=== PATIENT | female | born 1940 | race Caucasian/White ===

== ENCOUNTER 2017-11-05 15:31 | Emergency (ER) | payer MEDICARE, MEDICAID ==
--- NOTE | 2017-11-05 17:27 | XRAY Report ---
Procedure Date: 11/05/2017 Accession Number: [id number] / [id number] Procedure: XR - Tib/Fib LT CPT Code: FULL RESULT: EXAM: LEFT TIBIA/FIBULA RADIOGRAPHY EXAM DATE: 11/05/2017 05:08 PM. CLINICAL HISTORY: L leg pain, swelling. COMPARISON: None. TECHNIQUE: 2 views. FINDINGS: Bones: There is moderate spurring and degenerative disease of the knee. No acute fracture or destructive bony abnormality. Joints: There is mild joint space narrowing in the medial compartment of the knee. No subluxation or dislocation. Soft Tissues: There is soft tissue swelling at the ankle. IMPRESSION: 1. Degenerative disease of the knee and ankle without acute fracture. RADIA
--- NOTE | 2017-11-05 17:29 | ED Physician Documentation ---
History of Present Illness - Stated complaint Stated Complaint: LT LEG LUMP/PX - Chief complaint Chief Complaint: Ext Problem - History obtained from History obtained from: Patient, Family - History of Present Illness Timing: How many days ago (2) Pain level max: 8 Pain level now: 8 Improved by: rest Worsened by: walking - Additonal information Additional information: LLE pain, swelling to mid roberts. mild bruising. doesn't recall an injury. no redness. Review of Systems Constitutional: denies: Fever, Chills GI: denies: Nausea, Vomiting, Diarrhea Skin: denies: Rash Musculoskeletal: denies: Neck pain, Back pain PD PAST MEDICAL HISTORY - Past Medical History Past Medical History: Yes Cardiovascular: None Respiratory: Sleep apnea, CPAP use Endocrine/Autoimmune: None GI: Other : Other HEENT: None Derm: None Other Past Medical History: Nephrectomy. Peritonitis (septic after appendix removal) - Past Surgical History General: Other - Present Medications Home Medications: Ambulatory Orders Medication Instructions Recorded Confirmed Hydrochlorothiazide 12.5 mg PO 11/05/17 Ramipril 2.5 mg PO 11/05/17 - Allergies Allergies/Adverse Reactions: Allergies Allergy/AdvReac Type Severity Reaction Status Date / Time No Known Drug Allergies Allergy Verified 11/05/17 15:38 - Social History Does the pt smoke?: No Smoking Status: Never smoker Does the pt drink ETOH?: Yes Does the pt have substance abuse?: No - Immunizations Immunizations are current?: Yes - POLST Patient has POLST: No PD ED PE NORMAL - Vitals Vital signs reviewed: Yes - General General: Alert and oriented X 3, No acute distress - HEENT HEENT: Moist mucous membranes - Neck Neck: Supple, no meningeal sign - Derm Derm: Warm and dry - Extremities Extremities: Other (L LE - small hematoma to the anterior aspect of the L roberts 2x2cm with bruising. no crepitus. no erythema. no drainage. no palpable thrombosis. ) - Neuro Neuro: Alert and oriented X 3 Results - Vitals Vitals: Vital Signs - 24 hr 11/05/17 15:36 Temperature 36.8 C Heart Rate 78 Respiratory 16 Rate Blood Pressure 121/93 H O2 Saturation 97 - Rads (name of study) L tib fib xray Radiology: Prelim report reviewed, EMP read contemporaneously, See rad report ( Degenerative disease of the knee and ankle without acute fracture) PD MEDICAL DECISION MAKING - ED course Complexity details: reviewed results, re-evaluated patient, considered differential, d/w patient, d/w family ED course: Patient is a 77-year-old female with what appears to be a small hematoma to the left roberts. Does not recall an injury. Bedside ultrasound shows a small hypoechoic area without vascular flow. No acute findings on x-ray to suggest acute fracture. Wrapped in an Rodolfo wrap. Ambulating with walking sticks. Patient and family counseled regarding signs and symptoms for which I believe and urgent re-evaluation would be necessary. Patient with good understanding of and agreement to plan and is comfortable going home at this time This document was made in part using voice recognition software. While efforts are made to proofread this document, sound alike and grammatical errors may occur. - Sepsis Event Vital Signs: Vital Signs - 24 hr 11/05/17 15:36 Temperature 36.8 C Heart Rate 78 Respiratory 16 Rate Blood Pressure 121/93 H O2 Saturation 97 Departure - Departure Disposition: 01 Home, Self Care Clinical Impression: Hematoma Condition: Good Instructions: ED Hematoma Follow-Up: Israel Tamez MD [Primary Care Provider] - Within 1 week Comments: Return if you worsen. Wear the RODOLFO bandage for comfort during the day and remove it at night. Ice may help as well
[2017-11-05 17:49] VITALS: BP 143/77
== END 2017-11-05 17:48 | disposition home or self-care (01) ==
LOC: ED 15:31
DX: S80.12XA Contusion of left lower leg, initial encounter (principal); X58.XXXA Exposure to other specified factors, initial encounter
CPT/HCPCS: 99283

== ENCOUNTER 2017-12-09 22:34 | Outpatient (CLI) | payer MEDICARE, MEDICAID | END 2017-12-09 22:35 | disposition critical access hospital (66) | LOC: EMS 22:34 | PROVIDERS: ATTEND Surgery | DX: R07.9 Chest pain, unspecified (principal); S41.111A Laceration without foreign body of right upper arm, initial encounter; V40.5XXA Car driver injured in collision with pedestrian or animal in traffic accident, initial encounter; Y92.413 State road as the place of occurrence of the external cause | CPT/HCPCS: A0425; A0429 ==

== ENCOUNTER 2017-12-09 22:46 | Emergency (ER) | payer OTHER, MEDICARE, MEDICAID ==
[2017-12-09] MEDS ORDERED: TETANUS/DIPHTHERIA/PERTUSSIS 0.5 ML SYRINGE IM ONE (23:05)
[2017-12-09] MEDS ORDERED: HYDROcod/ACETAM 5/325 MG TABLET PO STA (23:05)
[2017-12-09] MEDS ORDERED: BACITRACIN OINT TOP ONE (23:51)
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
[2017-12-10 00:28] VITALS: BP 136/75
== END 2017-12-10 00:10 | disposition home or self-care (01) ==
LOC: EDUNIT# → ED 22:46
DX: S39.012A Strain of muscle, fascia and tendon of lower back, initial encounter (principal); S20.219A Contusion of unspecified front wall of thorax, initial encounter; S51.811A Laceration without foreign body of right forearm, initial encounter; V40.5XXA Car driver injured in collision with pedestrian or animal in traffic accident, initial encounter; Z23 Encounter for immunization
CPT/HCPCS: 71046; 72100; 90471; 90715; 93005; 99283; A9270

== ENCOUNTER 2018-03-20 11:38 | Outpatient (CLI) | payer MEDICARE, MEDICAID | END 2018-03-20 11:39 | disposition home or self-care (01) | LOC: SC 11:38 | PROVIDERS: ATTEND Internal Medicine Pulmonary Disease | DX: G47.33 Obstructive sleep apnea (adult) (pediatric) (principal) | CPT/HCPCS: 99203; G0463; 99212 ==

== ENCOUNTER 2018-03-27 19:39 | Outpatient (CLI) | payer MEDICARE, MEDICAID | END 2018-03-27 19:40 | disposition home or self-care (01) | LOC: SC 19:39 | PROVIDERS: ATTEND Internal Medicine Pulmonary Disease | DX: G47.33 Obstructive sleep apnea (adult) (pediatric) (principal); G47.61 Periodic limb movement disorder | CPT/HCPCS: 95810 ==

== ENCOUNTER 2018-05-16 14:47 | Outpatient (CLI) | payer MEDICARE, MEDICAID | END 2018-05-16 14:48 | disposition home or self-care (01) | LOC: SC 14:47 | PROVIDERS: ATTEND Nurse Practitioner Family | DX: G47.33 Obstructive sleep apnea (adult) (pediatric) (principal) | CPT/HCPCS: 99214; G0463; 99212 ==

== ENCOUNTER 2018-06-20 13:50 | Outpatient (CLI) | payer MEDICARE, MEDICAID | END 2018-06-20 13:51 | disposition home or self-care (01) | LOC: SC 13:50 | PROVIDERS: ATTEND Nurse Practitioner Family | DX: G47.33 Obstructive sleep apnea (adult) (pediatric) (principal) | CPT/HCPCS: 99214; G0463; 99212 ==

== ENCOUNTER 2018-08-07 10:18 | Outpatient (CLI) | payer MEDICARE, MEDICAID | END 2018-08-07 10:19 | disposition home or self-care (01) | LOC: SC 10:18 | PROVIDERS: ATTEND Nurse Practitioner Family | DX: G47.33 Obstructive sleep apnea (adult) (pediatric) (principal) | CPT/HCPCS: 99214; G0463; 99212 ==

== ENCOUNTER 2018-11-20 13:26 | Outpatient (CLI) | payer MEDICARE, MEDICAID | END 2018-11-20 13:27 | disposition home or self-care (01) | LOC: SC 13:26 | PROVIDERS: ATTEND Nurse Practitioner Family | DX: G47.33 Obstructive sleep apnea (adult) (pediatric) (principal); G47.00 Insomnia, unspecified | CPT/HCPCS: 99214; G0463; 99212 ==

== ENCOUNTER 2019-05-13 13:01 | Outpatient (CLI) | payer MEDICARE, MEDICAID ==
--- NOTE | 2019-05-14 04:56 | XRAY Report ---
Reason: BILAT KNEE PAIN Procedure Date: 05/13/2019 Accession Number: [id number] / [id number] Procedure: XRN - Knee 3 View BILAT CPT Code: Final Report FULL RESULT: EXAMS: 1. Right Knee Radiography 2. Left Knee Radiography EXAM DATE:05/13/2019 01:29 PM. CLINICAL HISTORY:BILAT KNEE PAIN. COMPARISON: None. TECHNIQUE: 3 views each. FINDINGS: Right Knee: Bones: No acute fracture evident. Osteophyte formation at distal femur and proximal tibia. Joints: Mild medial lateral compartment joint space narrowing and patellofemoral joint space narrowing. Suprapatellar joint effusion. Soft Tissues: Suspected chondrocalcinosis. Prominent soft tissues related to body habitus. Left Knee: Bones: No acute fracture evident. Osteophyte formation at distal femur and proximal tibia. Joints: Tricompartmental joint space narrowing, most prominent at medial compartment and patellofemoral compartment. Prominent suprapatellar joint effusion. Soft Tissues: Suspected chondrocalcinosis. Prominent soft tissues related to body habitus. IMPRESSION: 1. No evidence of acute osseous abnormality. 2. Bilateral knee osteoarthritis. 3. Bilateral joint effusions, larger on left than right. RADIA
== END 2019-05-13 13:02 | disposition home or self-care (01) ==
LOC: DI.N 13:01
PROVIDERS: ATTEND Internal Medicine
DX: M17.0 Bilateral primary osteoarthritis of knee (principal)

== ENCOUNTER 2019-11-09 13:03 | Emergency (ER) | payer MEDICARE, MEDICAID ==
--- NOTE | 2019-11-09 14:32 | XRAY Report ---
PROCEDURE: Chest 1 View X-Ray INDICATIONS: Chest Pain TECHNIQUE: One view of the chest was acquired. COMPARISON: Chest x-ray one view, 12/09/2017 FINDINGS: Surgical changes and devices: None. Lungs and pleura: No pleural effusions or pneumothorax. There is left basilar scars and atelectasis. Mediastinum: Mediastinal contours appear normal. Heart size is normal. Bones and chest wall: No suspicious bony lesions. Overlying soft tissues appear unremarkable. IMPRESSION: Left basilar scars and atelectasis. Reviewed by: Drew Valdes MD on 11/09/2019 2:31 PM PDT Approved by: Drew Valdes MD on 11/09/2019 2:31 PM PDT Station ID: [id number]
[2019-11-09 15:09] LABS: BASOPHILS % (AUTO) 0.1 %; HGB - HEMOGLOBIN 11.6 g/dL (12.0-16.0); LYMPHOCYTES # (AUTO) 0.9 10^3/uL (1.5-3.5); LYMPHOCYTES % (AUTO) 11.8 %; MEAN CORPUSCULAR HEMOGLOBIN 28.5 pg (27.0-31.0); MEAN CORPUSCULAR HGB CONC 31.6 g/dL (32.0-36.0); MEAN CORPUSCULAR VOLUME 90.2 fL (81.0-99.0); MEAN PLATELET VOLUME 8.6 fL (7.9-10.8); MONOCYTES # (AUTO) 0.3 10^3/uL (0.0-1.0); MONOCYTES % (AUTO) 4.3 %; NEUTROPHILS # (AUTO) 6.6 10^3/uL (1.5-6.6); NEUTROPHILS % (AUTO) 83.4 %; PLT - PLATELET COUNT 209 10^3/uL (130-450); RED BLOOD COUNT 4.07 10^6/uL (4.20-5.40); RED CELL DISTRIBUTION WIDTH 13.6 % (12.0-15.0)
--- NOTE | 2019-11-09 15:25 | ED Physician Documentation ---
PD HPI CHEST PAIN - Stated complaint Stated Complaint: CHEST PX/N/V - Chief complaint Chief Complaint: Cardiac - History obtained from History obtained from: Patient - History of Present Illness Timing - onset: Today Pain level max: 7 Pain level now: 3 Quality: Aching, Pain Location: Epigastric, Other (Right upper quadrant) Radiation: Back Improved by: Nothing Worsened by: Other (Eating, drinking, vomiting) Associated symptoms: Nausea, Vomiting. No: Diaphoresis, Feeling faint / dizzy, General Weakness, Palpitations Recently seen: Not recently seen - Additional information Additional information: 79-year-old female presents to the emergency department stating that she had nausea and vomiting this morning starting about 2 AM. Nothing makes it better or worse. Has epigastric abdominal pain that radiates to her back as well. Did not have any chest pain. No dyspnea. She did travel from the [place] approximately 3 weeks ago. No calf swelling. No pleuritic pain. Does have a history of gallstones. Has had her appendix removed. No fevers. No recent antibiotics. Review of Systems Ten Systems: 10 systems reviewed and negative Constitutional: denies: Fever, Chills Nose: denies: Rhinorrhea / runny nose, Congestion Throat: denies: Sore throat Cardiac: denies: Chest pain / pressure Respiratory: denies: Cough GI: reports: Nausea, Vomiting. denies: Diarrhea : denies: Dysuria Skin: denies: Rash Musculoskeletal: denies: Neck pain, Back pain Neurologic: denies: Headache PD PAST MEDICAL HISTORY - Past Medical History Cardiovascular: None Respiratory: Sleep apnea, CPAP use Endocrine/Autoimmune: None GI: Other : Other HEENT: None Derm: None - Past Surgical History General: Other - Present Medications Home Medications: Ambulatory Orders Medication Instructions Recorded Confirmed Hydrochlorothiazide 12.5 mg PO DAILY 11/05/17 12/09/17 Ramipril 2.5 mg PO DAILY 11/05/17 12/09/17 Ondansetron Odt [Zofran] 4 mg TL Q6H PRN #10 tablet 11/09/19 - Allergies Allergies/Adverse Reactions: Allergies Allergy/AdvReac Type Severity Reaction Status Date / Time No Known Drug Allergies Allergy Verified 11/05/17 15:38 - Social History Does the pt smoke?: No Smoking Status: Never smoker Does the pt drink ETOH?: Yes Does the pt have substance abuse?: No - Immunizations Immunizations are current?: Yes - POLST Patient has POLST: No PD ED PE NORMAL - Vitals Vital signs reviewed: Yes - General General: Alert and oriented X 3, No acute distress, Well developed/nourished - HEENT HEENT: PERRL, Moist mucous membranes - Neck Neck: Supple, no meningeal sign - Cardiac Cardiac: RRR, Strong equal pulses - Respiratory Respiratory: No respiratory distress, Clear bilaterally - Abdomen Abdomen: Normal bowel sounds, Soft, Non distended, Other (Tender to palpation right upper quadrant and epigastric. Equivocal Pyle sign) - Back Back: No CVA TTP, No spinal TTP - Derm Derm: Warm and dry - Extremities Extremities: No calf tenderness / cord - Neuro Neuro: Alert and oriented X 3 - Psych Psych: Normal mood, Normal affect Results - Vitals Vitals: Vital Signs - 24 hr 11/09/19 11/09/19 11/09/19 13:15 15:10 15:51 Temperature 2.3 C L 37.0 C Heart Rate 93 88 85 Respiratory 16 16 15 Rate Blood Pressure 143/82 H 123/78 127/66 O2 Saturation 100 99 93 11/09/19 11/09/19 11/09/19 16:30 17:00 17:30 Temperature Heart Rate 81 80 81 Respiratory 18 11 L 18 Rate Blood Pressure 127/105 H 101/64 114/64 O2 Saturation 97 99 96 Oxygen O2 Source Room air - Labs Labs: Laboratory Tests 11/09/19 11/09/19 11/09/19 15:00 15:00 15:00 WBC 8.0 RBC 4.07 L Hgb 11.6 L Hct 36.7 L MCV 90.2 MCH 28.5 MCHC 31.6 L RDW 13.6 Plt Count 209 MPV 8.6 Neut # (Auto) 6.6 Lymph # (Auto) 0.9 L [place] # (Auto) 0.3 Eos # (Auto) 0.0 Baso # (Auto) 0.0 Absolute Nucleated RBC 0.00 Nucleated RBC % 0.0 Sodium 136 Potassium 3.5 Chloride 96 L Carbon Dioxide 28 Anion Gap 12.0 BUN 22 H Creatinine 0.9 Estimated GFR (MDRD) 60 L Glucose 129 H Calcium 9.0 Total Bilirubin 1.0 AST 22 ALT 22 Alkaline Phosphatase 60 Troponin I High Sens 8.5 Total Protein 6.6 L Albumin 3.6 Globulin 3.0 Albumin/Globulin Ratio 1.2 Lipase 26 - Rads (name of study) RUQ US Radiology: Prelim report reviewed, EMP read contemporaneously, See rad report (1. Cholelithiasis. No ultrasound findings to suggest acute cholecystitis. 2. Dilated common bile duct. Please correlate with serum bilirubin for biliary obstruction. If clinically indicated, MRCP may be obtained for further evaluation. 3. Liver demonstrates increased echotexture consistent with diff) PD MEDICAL DECISION MAKING - ED course Complexity details: reviewed results, re-evaluated patient, considered differential, d/w patient, d/w family ED course: Patient appears to have biliary colic. Currently asymptomatic. No findings of cholecystitis. Tolerating p.o. without difficulty. Will prescribe nausea med ication for home. Counseled regarding dietary changes. Appears to have fatty liver as well. No clinical indication of biliary obstruction. Normal LFTs and bilirubin. Patient is well-appearing, nontoxic. Afebrile. Patient counseled regarding signs and symptoms for which I believe and urgent re-evaluation would be necessary. Patient with good understanding of and agreement to plan and is comfortable going home at this time This document was made in part using voice recognition software. While efforts are made to proofread this document, sound alike and grammatical errors may occur. Departure - Departure Disposition: 01 Home, Self Care Clinical Impression: Gallstones Vomiting Qualifiers: Vomiting type: unspecified Vomiting Intractability: non-intractable Nausea presence: with nausea Qualified Code(s): R11.2 - Nausea with vomiting, unspecified Condition: Good Instructions: ED Gallstone W Biliary Colic, ED Nausea Vomiting Follow-Up: Israel Tamez MD [Primary Care Provider] - Within 1 week Prescriptions: Ondansetron Odt [Zofran] 4 mg TL Q6H PRN #10 tablet PRN Reason: Nausea / Vomiting Comments: Follow-up with your doctor for further care. Return if you worsen. you should follow a low-fat diet. Discharge Date/Time: 11/09/19 18:27
[2019-11-09 15:29] LABS: ALBUMIN 3.6 g/dL (3.2-5.5); ALBUMIN/GLOBULIN RATIO 1.2 (1.0-2.2); CREATININE 0.9 mg/dL (0.4-1.0); TOTAL PROTEIN 6.6 g/dL (6.7-8.2)
[2019-11-09] MEDS ORDERED: MORPHINE 2 MG/ML CARPUJECT IVP STA (15:38)
[2019-11-09] MEDS ORDERED: SODIUM CHLORIDE 0.9% 1,000 ML IV STA ×2 (15:38)
[2019-11-09] MEDS ORDERED: ONDANSETRON 4 MG/2 ML VIAL IVP STA (15:38)
[2019-11-09] MEDS ORDERED: SUCRALFATE 1 GM/10 ML UDC PO STA (15:41)
[2019-11-09] MEDS ORDERED: MAG HYDROX/AL HYDROX/SIMETH 30 ML UDC PO STA (15:41)
[2019-11-09] MEDS ORDERED: LIDOCAINE VISCOUS 2% 15 ML UDC MM STA (15:41)
--- NOTE | 2019-11-09 17:46 | Ultrasound Report ---
PROCEDURE: Abdomen Limited INDICATIONS: RUQ abd pain TECHNIQUE: Real-time focused scanning was performed of the abdomen, with image documentation. COMPARISON: None. FINDINGS: There are are multiple mobile gallstones. No gallbladder wall thickening, pericholecystic fluid colle ction or sonographic Pyle's sign. Visualized liver demonstrates increased echotexture. Common bile duct is dilated measuring 10 mm. Right kidney is absent. IMPRESSION: 1. Cholelithiasis. No ultrasound findings to suggest acute cholecystitis. 2. Dilated common bile duct. Please correlate with serum bilirubin for biliary obstruction. If clinic ally indicated, MRCP may be obtained for further evaluation. 3. Liver demonstrates increased echotexture consistent with diffuse fatty infiltration. Other hepatoc ellular disease may have a similar appearance. Recommend correlation with liver functions. Reviewed by: Drew Valdes MD on 11/09/2019 5:45 PM PDT Approved by: Drew Valdes MD on 11/09/2019 5:45 PM PDT Station ID: [id number]
[2019-11-09 17:53] VITALS: BP 114/64
== END 2019-11-09 18:27 | disposition home or self-care (01) ==
LOC: ED 13:03
DX: K80.20 Calculus of gallbladder without cholecystitis without obstruction (principal); R11.2 Nausea with vomiting, unspecified; Z11.59 Encounter for screening for other viral diseases
CPT/HCPCS: 36415; 71045; 76705; 80053; 83690; 84484; 85025; 93005; 96374; 96375; 99284; 99285; A9270; U0004

== ENCOUNTER 2020-04-21 13:08 | Outpatient (CLI) | payer MEDICARE, MEDICAID ==
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
== END 2020-04-21 13:09 | disposition home or self-care (01) ==
LOC: SC 13:08
PROVIDERS: ATTEND Internal Medicine Pulmonary Disease
DX: G47.33 Obstructive sleep apnea (adult) (pediatric) (principal); E66.01 Morbid (severe) obesity due to excess calories; Z68.41 Body mass index [BMI] 40.0-44.9, adult
CPT/HCPCS: 99213; G0463; 99212

== ENCOUNTER 2021-01-18 15:23 | Outpatient (CLI) | payer MEDICARE, MEDICAID ==
[2021-01-18 18:00] LABS: BASOPHILS % (AUTO) 0.4 %; EOSINOPHILS # (AUTO) 0.1 10^3/uL (0.0-0.7); EOSINOPHILS % (AUTO) 1.7 %; HCT - HEMATOCRIT 38.2 % (37.0-47.0); HGB - HEMOGLOBIN 12.2 g/dL (12.0-16.0); LYMPHOCYTES # (AUTO) 1.6 10^3/uL (1.5-3.5); LYMPHOCYTES % (AUTO) 29.9 %; MEAN CORPUSCULAR HEMOGLOBIN 28.7 pg (27.0-31.0); MEAN CORPUSCULAR HGB CONC 31.9 g/dL (32.0-36.0); MEAN CORPUSCULAR VOLUME 89.9 fL (81.0-99.0); MEAN PLATELET VOLUME 8.9 fL (7.9-10.8); MONOCYTES # (AUTO) 0.4 10^3/uL (0.0-1.0); NEUTROPHILS # (AUTO) 3.3 10^3/uL (1.5-6.6); NEUTROPHILS % (AUTO) 60.6 %; PLT - PLATELET COUNT 241 10^3/uL (130-450); RED BLOOD COUNT 4.25 10^6/uL (4.20-5.40); RED CELL DISTRIBUTION WIDTH 13.6 % (12.0-15.0); WHITE BLOOD COUNT 5.5 x10^3/uL (4.8-10.8)
[2021-01-18 18:38] LABS: ALBUMIN/GLOBULIN RATIO 1.4 (1.0-2.2); BILIRUBIN,TOTAL 0.5 mg/dL (0.2-1.0); CALCIUM 9.8 mg/dL (8.5-10.3); CREATININE 0.8 mg/dL (0.4-1.0); POTASSIUM 3.8 mmol/L (3.5-5.0); TOTAL PROTEIN 6.9 g/dL (6.7-8.2)
== END 2021-01-18 15:24 | disposition home or self-care (01) ==
LOC: LAB.N 15:23
PROVIDERS: ATTEND Internal Medicine
DX: Z79.899 Other long term (current) drug therapy (principal)
CPT/HCPCS: 36415; 80053; 85025

== ENCOUNTER 2021-01-18 15:31 | Outpatient (CLI) | payer MEDICARE, MEDICAID ==
--- NOTE | 2021-01-19 12:35 | XRAY Report ---
PROCEDURE: Knee 4 View BILAT INDICATIONS: BILATERAL PRIMARY OSTEOARTHRITIS OF KNEES TECHNIQUE: 4 views of the bilateral knee(s) were acquired. COMPARISON: None. FINDINGS: Bones: No fractures or dislocations. No suspicious bony lesions. There is severe bilateral medial compartment narrowing, left greater than right with subchondral sclerosis and periarticular osteophyt es. No definitive erosions. There is slight appearance of chondrocalcinosis bilaterally. Severe bilat eral patellofemoral as well as mild to moderate right greater than left lateral compartment narrowing is present. Soft tissues: Mild bilateral effusions. No suspicious soft tissue calcifications. IMPRESSION: 1. Significant tricompartmental arthritic change most severe medially as above. Reviewed by: Juana Carrillo MD on 01/19/2021 12:34 PM PDT Approved by: Juana Carrillo MD on 01/19/2021 12:34 PM PDT Station ID: [id number]
== END 2021-01-18 15:32 | disposition home or self-care (01) ==
LOC: DI.N 15:31
PROVIDERS: ATTEND Internal Medicine
DX: M17.0 Bilateral primary osteoarthritis of knee (principal); Z79.899 Other long term (current) drug therapy
CPT/HCPCS: 36415; 80053; 85025

== ENCOUNTER 2021-11-19 09:52 | Outpatient (CLI) | payer MEDICARE, MEDICAID ==
[2021-11-19 14:39] LABS: BASOPHILS % (AUTO) 0.7 %; EOSINOPHILS # (AUTO) 0.1 10^3/uL (0.0-0.7); EOSINOPHILS % (AUTO) 2.3 %; HCT - HEMATOCRIT 39.3 % (37.0-47.0); HGB - HEMOGLOBIN 12.6 g/dL (12.0-16.0); LYMPHOCYTES # (AUTO) 1.6 10^3/uL (1.5-3.5); LYMPHOCYTES % (AUTO) 36.1 %; MEAN CORPUSCULAR HEMOGLOBIN 29.2 pg (27.0-31.0); MEAN CORPUSCULAR HGB CONC 32.1 g/dL (32.0-36.0); MEAN CORPUSCULAR VOLUME 91.2 fL (81.0-99.0); MONOCYTES # (AUTO) 0.4 10^3/uL (0.0-1.0); MONOCYTES % (AUTO) 9.1 %; NEUTROPHILS # (AUTO) 2.2 10^3/uL (1.5-6.6); NEUTROPHILS % (AUTO) 51.6 %; PLT - PLATELET COUNT 236 10^3/uL (130-450); RED BLOOD COUNT 4.31 10^6/uL (4.20-5.40); RED CELL DISTRIBUTION WIDTH 13.8 % (12.0-15.0); WHITE BLOOD COUNT 4.3 x10^3/uL (4.8-10.8)
[2021-11-19 14:49] LABS: ALBUMIN 3.9 g/dL (3.2-5.5); ALBUMIN/GLOBULIN RATIO 1.3 (1.0-2.2); ALKALINE PHOSPHATASE 57 IU/L (42-121); ALT ALANINE AMINOTRANSFERASE 22 IU/L (10-60); AST ASPARTATE AMINOTRANSFERASE 20 IU/L (10-42); BILIRUBIN,TOTAL 0.7 mg/dL (0.2-1.0); BUN - BLOOD UREA NITROGEN 20 mg/dL (6-20); CALCIUM 9.9 mg/dL (8.5-10.3); CARBON DIOXIDE - CO2 29 mmol/L (21-32); CHLORIDE 102 mmol/L (101-111); CHOL/HDL RATIO 2.9 (<4.4); CHOLESTEROL 242 mg/dL; CREATININE 0.8 mg/dL (0.4-1.0); GFR - MDRD 69 (>89); GLUCOSE 98 mg/dL (70-100); HDL CHOLESTEROL 84 mg/dL; LDL CHOLESTEROL,CALCULATED 140 mg/dL; LDL/HDL RATIO 1.7 (<4.4); SODIUM 141 mmol/L (135-145); TOTAL PROTEIN 6.9 g/dL (6.7-8.2); TRIGLYCERIDES 88 mg/dL; VLDL CHOLESTEROL 18 mg/dL
[2021-11-19 15:00] LABS: THYROID STIMULATING HORMONE 3.37 uIU/mL (0.34-5.60)
== END 2021-11-19 09:53 | disposition home or self-care (01) ==
LOC: LAB.S 09:52
PROVIDERS: ATTEND Registered Nurse
DX: Z01.812 Encounter for preprocedural laboratory examination (principal); R32 Unspecified urinary incontinence; Z79.899 Other long term (current) drug therapy; Z13.29 Encounter for screening for other suspected endocrine disorder
CPT/HCPCS: 36415; 80053; 80061; 83721; 84443; 85025

== ENCOUNTER 2022-01-19 10:21 | Observation (INO) | payer MEDICARE, MEDICAID ==
[~2022-01-19 10:21] MED LIST: ACETAMINOPHEN 500 MG TABLET PO ONE; CEFAZOLIN 2G/50ML 0.9% NS 2 GM/50 ML BAG IV ONE; CELECOXIB 100 MG CAPSULE PO ONE; DEXAMETHASONE 10 MG/ML VIAL ONE
[2022-01-19] MEDS ORDERED: LACTATED RINGERS 1,000 ML IV ONE ×2 (10:41→15:35)
[2022-01-19] MEDS ORDERED: PROPOFOL 200 MG/20 ML VIAL IVP ONE ×2 (11:19→14:36)
[2022-01-19] MEDS ORDERED: PROPOFOL 500 MG/50 ML 500 MG/50 ML VIAL ONE (11:19)
[2022-01-19] MEDS ORDERED: MIDAZOLAM 2 MG/2 ML VIAL ONE (11:24)
[2022-01-19] MEDS ORDERED: TRANEXAMIC ACID 1,000 MG/10 ML VIAL ONE (11:25)
--- NOTE | 2022-01-19 11:28 | ANESTHESIA ---
Pre-Anesthesia VS, & Labs - Diagnosis L knee OA - Procedure L TKA Vital Signs: Temp Pulse Resp BP Pulse Ox O2 Flow Rate 37.0 C 77 16 149/93 H 99 0 01/19/22 10:42 01/19/22 10:42 01/19/22 10:42 01/19/22 10:42 01/19/22 10:42 01/19/22 10:42 Height: 5 ft 3 in Weight (kg): 102.51 kg Body Mass Index: 40.0 BMI Classification: Morbidly Obese - NPO >8 hours Last Fluid Intake: sips w/meds - Is Patient ?: No - Lab Results Current Lab Results: Laboratory Tests 01/19/22 10:53: POC Whole Bld Glucose 69 L Lab results reviewed: Yes Home Medications and Allergies Home Medications: Ambulatory Orders Cetirizine HCl [All Day Allergy Relief] 5 mg PO DAILY PRN 01/04/22 Lansoprazole [Prevacid] 15 mg PO DAILY PRN 01/04/22 Mirabegron [Myrbetriq] 50 mg PO DAILY 01/04/22 Pumpkin Seed Oil 1 cap PO BID 01/04/22 Ramipril 5 mg PO DAILY 11/05/17 hydroCHLOROthiazide [Hydrochlorothiazide] 12.5 mg PO DAILY 11/05/17 Cetirizine HCl [All Day Allergy Relief] 5 mg PO DAILY PRN 01/04/22 Lansoprazole [Prevacid] 15 mg PO DAILY PRN 01/04/22 Mirabegron [Myrbetriq] 50 mg PO DAILY 01/04/22 Pumpkin Seed Oil 1 cap PO BID 01/04/22 Allergies/Adverse Reactions: Allergies Allergy/AdvReac Type Severity Reaction Status Date / Time No Known Drug Allergies Allergy Verified 11/05/17 15:38 Anes History & Medical History - Anesthetic History Anesthesia Complications: reports: No previous complications Family history of Anesthesia Complications: Denies Family history of Malignant Hyperthermia: Denies - Medical History Cardiovascular: reports: Hypertension Pulmonary: reports: Sleep apnea, CPAP use Gastrointestinal: reports: Other Urinary: reports: Incontinence, Other Musculoskeletal: reports: Osteoarthritis Endocrine/Autoimmune: reports: None Skin: reports: None Smoking Status: Never smoker History of Cancer?: Yes (renal, nephrectomy) - Surgical History General: reports: Other Eyes Ears Nose Throat (EENT): reports: Cataracts Urologic: reports: Nephrectomy Exam General: Alert, Oriented x3, Cooperative Dental: Dentures full Lower Mouth Openin Fingerbreadth Neck Mobility: Normal Mallampati classification: II Thyromental Distance: 4-6 cm Respiratory: Lungs clear, Normal breath sounds, No respiratory distress Cardiovascular: Regular rate Neurological: Normal speech Mental/Cognitive Status: Alert/Oriented X3, Normal for patient Cognitive Status: Within normal limits Plan Anesthesia Type: Spinal Consent for Procedure(s) Verified and Reviewed: Yes Code Status: Attempt Resuscitation ASA classification: 3-Severe systemic disease Is this case an emergency?: No
[2022-01-19] MEDS ORDERED: HYDROmorphone 0.5 MG/0.5 ML SYRINGE IVP PRN (11:35)
[2022-01-19] MEDS ORDERED: ePHEDrine 50 MG/ML VIAL IVP PRN (11:35)
[2022-01-19] MEDS ORDERED: METOCLOPRAMIDE 10 MG/2 ML VIAL IVP PRN (11:35)
[2022-01-19] MEDS ORDERED: ONDANSETRON 4 MG/2 ML VIAL IVP PRN ×3 (11:35→15:29)
[2022-01-19] MEDS ORDERED: fentaNYL 100 MCG/2 ML VIAL IVP PRN ×2 (11:35→15:26)
[2022-01-19] MEDS ORDERED: NALOXONE 0.4 MG/ML VIAL IVP PRN (11:35)
[2022-01-19] MEDS ORDERED: MORPHINE 2 MG/ML CARPUJECT IVP PRN (11:35)
[2022-01-19] MEDS ORDERED: ATROPINE ABBOJECT 1 MG/10 ML SYRINGE IVP PRN (11:35)
[2022-01-19] MEDS ORDERED: BUPIVACAINE 0.25% PF 10 ML VIAL ONE (11:46)
[2022-01-19] MEDS ORDERED: VANCOMYCIN 1 GM VIAL ONE (11:46)
[2022-01-19] MEDS ORDERED: KETOROLAC 30 MG/ML VIAL ONE (11:46)
[2022-01-19] MEDS ORDERED: BUPIVACAINE 0.5% PF 10 ML VIAL ONE (11:58)
[2022-01-19] MEDS ORDERED: LACTATED RINGERS 1,000 ML IV SCH (12:00)
[2022-01-19] MEDS ORDERED: SODIUM CHLORIDE 0.9% 10 ML VIAL IVP ONE (12:32)
[2022-01-19] MEDS ORDERED: BUPIVACAINE 0.5% PF 30 ML VIAL INFIL ONE (12:55)
[2022-01-19] MEDS ORDERED: BUPIVACAINE 0.5% PF 30 ML VIAL SUBQ ONE (12:55)
[2022-01-19] MEDS ORDERED: BUPIVACAINE 0.5% PF 30 ML VIAL ONE ×2 (12:57→15:10)
[2022-01-19] MEDS ORDERED: PROPOFOL 500 MG/50 ML 1,000 MG/100 ML VIAL ONE (13:49)
[2022-01-19] MEDS ORDERED: VANCOMYCIN 1 GM VIAL MC ONE (14:43)
[2022-01-19] MEDS ORDERED: HYDROGEN PEROXIDE 3% 473 ML BOTTLE TOP ONE (14:44)
--- NOTE | 2022-01-19 15:00 | OPERATIVE REPORT ---
Operative Report - General Procedure Date: 01/19/22 Planned Procedure: Left total knee replacement Pre-Op Diagnosis: Osteoarthritis left knee, varus deformity and mild flexion contracture Procedure Performed: Left total knee replacement: [employer] journey 2 antibiotic cement, posterior stabilized knee with #5 femoral component, #4 tibial baseplate, 9 mm constrained tibial articular bearing, 23 mm biconvex patella Post Op Diagnosis: Same as preoperative diagnosis - Procedure Note Primary Surgeon: Abel Rivera MD Secondary Surgeon: Stephen Dan Anesthesia Technique: General LMA, Spinal Estimated Blood Loss (mL): 250 Indications: This is a 81-year-old woman with chronic pain to both knees associated with advanced osteoarthritis. She is tried several nonoperative treatment modalities as has been documented without good pain relief. Her symptoms interfere with activities of daily living and activities that she would like to do because of the pain and limitation of weightbearing activity. Her exam showed increased body mass index consistent with morbid obesity. She had decreased motion, crepitus, joint line tenderness of her left knee. She had good stability to the left knee and strength. Her neurovascular was intact. Her x-ray showed varus deformity with complete loss of medial joint space, subchondral sclerosis and osteophytes and also changes to the patellofemoral joint of a similar nature. She had preoperative medical evaluation and was felt to be an acceptable candidate for the desired surgical procedure. She has attended joint camp, has received joint camp book, preoperative informed consent obtained from patient. Findings: There was marked bone and cartilage loss to the medial compartment and patellofemoral joint with gouging and grooving of the patella and loss of thickness to patella. The medial compartment had hard, eburnated bone surface with osteophytes. The menisci were intact as well as the cruciate ligaments. There was a nonspecific synovitisWith effusion present. There was cortisone injection remnants in the knee. Complications: None known, however, the femoral impactor had very small remnants of old cement that had been sterilized with the impactor. the thin cement fragments were about 1 to 2 mm x 0.5 mm in thickness, approximately 3-4. - Other Other Information/Narrative: The patient was brought to the operating room and was placed in a supine position. She was given a adductor canal block by anesthesia. A pneumatic tourniquet was Not applied because of the large conical shape of the thigh making it extremely difficult to hold the tourniquet safely. A foot bump was applied to the ipsilateral side of the operating room table to facilitate intraoperative knee flexion. A timeout procedure was performed by the entire operating room team and all were in agreement. A midline longitudinal incision was made with the knee in flexion. A medial parapatellar arthrotomy was made. The anterior horn of medial and lateral menisci were released and part of patellar fat pad was excised. The knee was flexed and the patella was dislocated laterally. A drill hole was made in the intramedullary notch with a 9.5 mm drill. Osteophytes about the proximal tibia and femur had been removed with a rongeur. The distal femoral cutting guide was aligned parallel to the posterior condyles. The intramedullary jeremy and guide was advanced and the distal femoral guide was stabilized with half pins. The distal 5 degrees valgus cut was made through the distal femoral guide.An additional 2 mm resection of the distal femur was performed to accommodate the knee flexion contracture of about 10 degrees. Next the extra medullary tibial guide was assembled and applied and aligned to the mechanical axis in both sagittal and coronal planes. Tibial referencing was done to allow 2 mm of bone from the most affected side. The tibial guide was stabilized with half pins. Retractors were placed medially and laterally to protect the collateral ligaments and a retractor was placed directly against the posterior bone to sublux the tibia anteriorly. A [place] precision 8 saw was used to make the tibial proximal cut. The tibial block was removed as a single piece and the menisci were removed as well. The extension gap was assessed with a extension block spacer using a 10 mm spacer and this was found to fit well as well as the 9 mm spacer block with the knee in 90 degrees of flexion. Next the femoral positioning guide was applied and aligned to the epicondylar axis and [place] line. This was secured in place with approximately 3 degrees of external rotation. The size of the femur at the anterior lateral trochlea was a #5. Drill holes were made in the 5 and 1 #5 cutting block was inserted and secured. The 5 cuts were made to the captured block using oscillating saw. The flexion gap was assessed with the 10 mm spacer and was found to fit well. The patella was then prepared. A 23 mm biconvex patellar reamer was used. The tibial trial #4 was then applied to the tibia and aligned to the mechanical axis. The drill and punch fin was utilized. Trial reduction was performed with the femoral and tibial components in place. Notch resection was then through the trial component With the appropriate reamers anteriorly and posteriorly as well as the box osteotome.. Pulsatile lavage was performed With hydrogen peroxide diluted irrigation. The components were inserted sequentially: Tibia, femur and lastly patellar component. Drill holes were made in medial lateral femoral condyles to the trial. Excess cement was removed and the knee was placed in extension during the hardening. Dilute Betadine irrigation was performed. The knee had full range of motion, good pa tellar tracking. There was good stability of the knee in full extension mid flexion and 90 degrees of flexion. There was good alignment of the Left knee. Hemostasis was achieved with electrocautery.A 3-minute dilute sterile Betadine irrigation was done. Vancomycin powder 2 g were inserted in the arthrotomy prior to deep closure. The deep closure was performed with #2 Ethibond proximal and distal to the patella with the knee in 40 degrees of flexion. #1 stratofix suture was then used to close the arthrotomy incision. 2-0 Stratofix was used to close the subcutaneous tissue. 3-0 Monocryl was used to do a subcuticular skin closure. Dermabond was applied to the skin incision. After the Dermabond had hardened, a silver impregnated dressing was applied. She tolerated the procedure well and received 2 g of Ancef intravenously and 2 g of tranxamic acid. A certified ophthalmic surgical assistant was utilized during the procedure and was found to be necessary component to help with exposure, protection of vital structures and closure.
[2022-01-19] MEDS ORDERED: ONDANSETRON 4 MG/2 ML VIAL ONE (15:03)
[2022-01-19] MEDS ORDERED: LANSOPRAZOLE 15 MG CAPSULE PO PRN (15:25)
[2022-01-19] MEDS ORDERED: DOCUSATE SODIUM 100 MG CAPSULE PO PRN (15:26)
[2022-01-19] MEDS ORDERED: SODIUM CHLORIDE 0.9% 1,000 ML IV ONE (15:26)
[2022-01-19] MEDS ORDERED: SODIUM CHLORIDE FLUSH 0.9% 10 ML SYRINGE IVP PRN (15:26)
[2022-01-19] MEDS ORDERED: HYDROmorphone 0.5 MG/0.5 ML SYRINGE ONE (16:20)
--- NOTE | 2022-01-19 17:03 | ANESTHESIA POST OP EVALUATION ---
Anesthesia Post Eval - Post Anesthesia Eval Vitals: Last Vital Signs Temp 36.2 C L 01/19/22 16:52 Pulse 69 01/19/22 16:52 Resp 17 01/19/22 16:52 BP 124/70 01/19/22 16:52 Pulse Ox 98 01/19/22 16:52 O2 Flow Rate 0 01/19/22 10:42 CV Function Including HR & BP: Stable Pain Control: Satisfactory, Additional Therapies Ordered (to oral medication on floor) Nausea & Vomiting: Negative Mental Status: Baseline Respiratory Status: Airway Patent Hydration Status: Satisfactory Anesthesia Complications: None, Other (R arm pain resolved per patient. C/O mild discomfort on arrival to PACU)
[2022-01-19] MEDS ORDERED: CETIRIZINE 10 MG TABLET PO PRN (17:12)
[2022-01-19] MEDS: ACETAMINOPHEN 500 MG TABLET PO SCH ×2 (17:38→23:41)
[2022-01-19] MEDS: oxyCODONE 5 MG TABLET PO PRN ×2 (17:38→23:41)
[2022-01-19] MEDS: SODIUM CHLORIDE FLUSH 0.9% 10 ML SYRINGE IVP SCH ×2 (17:45→23:42)
[2022-01-19] MEDS ORDERED: PANTOPRAZOLE 40 MG TABLET PO PRN (17:52)
--- NOTE | 2022-01-19 17:56 | XRAY Report ---
PROCEDURE: Knee 2 View LT INDICATIONS: POST OPERATIVE IMAGING TECHNIQUE: 2 views of the left knee(s) were acquired. COMPARISON: X-ray knees bilateral, 11/30/2021. FINDINGS: Bones: No fractures or dislocations. No suspicious bony lesions. Soft tissues: No joint effusion. No suspicious soft tissue calcifications. IMPRESSION: Left knee total arthroplasty with expected post surgical appearance. Reviewed by: Drew Valdes MD on 01/19/2022 5:55 PM PDT Approved by: Drew Valdes MD on 01/19/2022 5:55 PM PDT Station ID: [id number]
[2022-01-19] MEDS: NS W/20 MEQ KCL 1,000 ML IV SCH (18:46)
[2022-01-19] MEDS: traMADol 50 MG TABLET PO PRN (19:51)
[2022-01-19] MEDS: CELECOXIB 100 MG CAPSULE PO SCH (20:40)
[2022-01-19] MEDS: ASPIRIN EC 81 MG TABLET PO SCH (20:40)
[2022-01-19] MEDS: ethyl alcohoL 62% SWAB AMPULE NAS SCH (20:40)
[2022-01-20] MEDS: traMADol 50 MG TABLET PO PRN ×4 (01:52→23:34)
[2022-01-20 05:14] LABS: ALBUMIN/GLOBULIN RATIO 1.3 (1.0-2.2); BILIRUBIN,TOTAL 0.6 mg/dL (0.2-1.0); CALCIUM 8.5 mg/dL (8.5-10.3); CREATININE 0.9 mg/dL (0.4-1.0); POTASSIUM 4.5 mmol/L (3.5-5.0); TOTAL PROTEIN 5.4 g/dL (6.7-8.2)
[2022-01-20] MEDS: oxyCODONE 5 MG TABLET PO PRN ×3 (05:48→19:02)
[2022-01-20] MEDS: ACETAMINOPHEN 500 MG TABLET PO SCH ×4 (05:48→23:31)
--- NOTE | 2022-01-20 08:03 | PROVIDER PROGRESS NOTE ---
Subjective - General Procedure Date: 01/19/22 Post Op Days: 1 Procedure Performed: Left TKA - Review of Systems Wound/Incisions: positive: Dressing dry and intact General: negative: Fever, Chills Pulmonary: negative: Shortness of breath Cardiovascular: negative: Chest pain Gastrointestinal: positive: Nausea Musculoskeletal: positive: Joint pain Psychiatric: positive: No symptoms (Patient is a 81-year-old female who is postop day [address] knee arthroplasty by Dr Abel Rivera at [facility] on 01/19/2022. Patient denies any signs or symptoms of infection, she does endorse significant joint pain and some mild nausea.) Objective - Patient Data Vital Signs: Vital Signs x48h Temp Pulse Resp BP Pulse Ox 01/20/22 04:23 36.5 C 73 16 124/64 94 Weight: Weight 01/18/22 01/19/22 01/20/22 23:59 23:59 23:59 Weight (kg) 102.51 kg Intake & Output: Intake and Output Totals x24h 01/18/22 01/19/22 01/20/22 23:59 23:59 23:59 Intake Total 1541.25 400 Output Total 570 Balance 971.25 400 - Lab Results Lab Results: 01/20/22 04:45 Other Lab Results: Lab Results x24hrs 01/20/22 01/19/22 Range/Units 04:45 10:53 Sodium 138 (135-145) mmol/L Potassium 4.5 (3.5-5.0) mmol/L Chloride 105 (101-111) mmol/L Carbon Dioxide 26 (21-32) mmol/L Anion Gap 7.0 (6-13) BUN 26 H (6-20) mg/dL Creatinine 0.9 (0.4-1.0) mg/dL Estimated GFR (MDRD) 60 L (>89) Glucose 133 H (70-100) mg/dL POC Whole Bld Glucose 69 L (70 - 100) mg/dL Calcium 8.5 (8.5-10.3) mg/dL Total Bilirubin 0.6 (0.2-1.0) mg/dL AST 22 (10-42) IU/L ALT 19 (10-60) IU/L Alkaline Phosphatase 46 (42-121) IU/L Total Protein 5.4 L (6.7-8.2) g/dL Albumin 3.0 L (3.2-5.5) g/dL Globulin 2.4 (2.1-4.2) g/dL Albumin/Globulin Ratio 1.3 (1.0-2.2) - Imaging Results Radiology Imaging: positive: EMP read indepedently (I have independently visualized a postop x-ray of the left knee that show expected postsurgical changes after total knee arthroplasty with good anatomical alignment and no apparent hardware loosening) - Current Medications Current Medications: Current Medications Generic Name Dose Route Start Last Admin Trade Name Freq PRN Reason Stop Dose Admin Acetaminophen 1,000 mg 01/19/22 18:00 01/20/22 05:48 Acetaminophen 500 Mg Tablet PO 1,000 mg Q6HR AMRITA Administration Alcohol 1 amp 01/19/22 21:00 01/19/22 20:40 Ethyl Alcohol 62% Swab Ampule EMILE 1 amp BID AMRTIA Administration Aspirin 81 mg 01/19/22 21:00 01/19/22 20:40 Aspirin Ec 81 Mg Tablet PO 81 mg BID AMRITA Administration Celecoxib 200 mg 01/19/22 21:00 01/19/22 20:40 Celecoxib 100 Mg Capsule PO 200 mg BID AMRITA Administration Fentanyl 25 mcg 01/19/22 15:26 01/20/22 04:22 Fentanyl 100 Mcg/2 Ml Vial IVP 25 mcg Q2HR PRN Administration PAIN Potassium Chloride/Sodium Chloride 1,000 mls @ 75 mls/hr 01/19/22 16:00 01/19/22 21:49 Normal Saline 0.9% W/20 Meq Kcl IV 75 mls/hr .[id number] AMRITA Infusion Oxycodone HCl 5 mg 01/19/22 15:26 01/20/22 05:48 Oxycodone 5 Mg Tablet PO 5 mg Q6HR PRN Administration PAIN Pantoprazole Sodium 40 mg 01/19/22 17:52 01/20/22 05:49 Pantoprazole 40 Mg Tablet PO 40 mg DAILY PRN Administration acid reflux Sodium Chloride 10 ml 01/19/22 17:00 01/19/22 23:42 Sodium Chloride Flush 0.9% 10 Ml Syringe IVP Not Given 0100,0900,1700 AMRITA Tramadol HCl 50 mg 01/19/22 15:26 01/20/22 01:52 Tramadol 50 Mg Tablet PO 50 mg Q6HR PRN Administration PAIN - Physical Exam Wound/Incisions: positive: Dressing dry and intact General Appearance: positive: No acute distress Respiratory: positive: No respiratory distress Skin: positive: Color nml, No rash, Warm, Dry Extremities: positive: Joint swelling Neurologic/Psychiatric: positive: Oriented x3, Motor nml, Sensation nml ABX Reporting Has patient been on IV antibiotics over the past 48 hours?: Yes Impression/Plan - Problem List Problem List: Patient is an 81-year-old female who is postop day 1 a total knee arthroplasty of her left knee performed by Dr Abel Rivera at [facility] on 01/19/2022. Patient is weightbearing as tolerated in a front wheeled walker. She shows no signs or symptoms of infection, dressing is dry and intact. Patient does endorse some mild nausea and does have expected joint pain and swelling. Patient is cleared by orthopedic surgery for discharge home, She has not outpatient discharge criteria, see discharge orders for further instructions. She is to receive additional physical and occupational therapy today prior to discharge. Patient has a copy of her discharge orders including her pain medication plan which Includes scheduled acetaminophen, tramadol and/or ibuprofen with Oxycodone 5 mg for breakthrough pain. Patient is taking 81 mg of aspirin twice a day for 6 weeks for blood clot prevention. Patient is working with [facility] social work and area rehabilitation facilities For a transfer to a rehabilitation facility today from the hospital. Patient does not have any help at home and is desirous of additional physical and Occupational Therapy for a number of days until she is confident to go back home. Hospitalist and social work are arranging the rehabilitation facility transfer and the hospitalist has agreed to answer the SNF/NURSING HOME orders when the facility has been chosen.
[2022-01-20] MEDS: NS W/20 MEQ KCL 1,000 ML IV SCH (08:59)
[2022-01-20] MEDS: CELECOXIB 100 MG CAPSULE PO SCH ×2 (09:00→21:29)
[2022-01-20] MEDS: ethyl alcohoL 62% SWAB AMPULE NAS SCH ×2 (09:00→21:29)
[2022-01-20] MEDS: SOLIFENACIN SUCCINATE 5 MG TABLET PO SCH (09:01)
[2022-01-20] MEDS: SODIUM CHLORIDE FLUSH 0.9% 10 ML SYRINGE IVP SCH ×3 (09:01→23:34)
[2022-01-20] MEDS: ASPIRIN EC 81 MG TABLET PO SCH ×2 (09:01→21:29)
[2022-01-20] MEDS: lisinopriL 20 MG TABLET PO SCH (13:37)
--- NOTE | 2022-01-20 14:17 | CONSULTATION NOTE ---
Referring Provider Name of Referring Provider:: Dr Rivera Consult Date: 01/20/22 Chief Complaint - Chief Complaint Chief Complaint: Knee pain, elective knee surgery History of Present Illness - Admitted From Admitted From:: PACU - History Obtained From History obtained from: Chart review and from the patient - History of Present Illness HPI Comment/Other: This is a an 81-year-old white female who has a history of HTN, sleep apnea on and osteoarthritis, who underwent preop clearance to have elective knee surgery, which was successfully done yesterday. She has had postop severe pain. Dr. Rivera of Ortho found severe arthritic changes of the knee with [id number]. Today the patient is to start PT and OT. History - Past Medical History Cardiovascular: reports: Hypertension Respiratory: reports: Sleep apnea, CPAP use Endocrine/Autoimmune: reports: None GI: reports: Other : reports: Incontinence, Other HEENT: reports: None Psych: reports: None Musculoskeletal: reports: Osteoarthritis Derm: reports: None MRSA Hx?: No - Past Surgical History General: reports: Other HEENT: reports: Cataracts - Family & Social History Living arrangement: At home - Substance History Use: Uses substance without health or social issues: NONE - POLST Patient has POLST: No Meds/Allgy - Home Medications Home Medications: Ambulatory Orders Medication Instructions Recorded Confirmed Ramipril 5 mg PO DAILY 11/05/17 01/04/22 hydroCHLOROthiazide 12.5 mg PO DAILY 11/05/17 01/04/22 [Hydrochlorothiazide] Cetirizine HCl [All Day Allergy 5 mg PO DAILY PRN 01/04/22 01/04/22 Relief] Lansoprazole [Prevacid] 15 mg PO DAILY PRN 01/04/22 01/04/22 Mirabegron [Myrbetriq] 50 mg PO DAILY 01/04/22 01/04/22 Pumpkin Seed Oil 1 cap PO BID 01/04/22 - Allergies Allergies/Adverse Reactions: Allergies Allergy/AdvReac Type Severity Reaction Status Date / Time No Known Drug Allergies Allergy Verified 11/05/17 15:38 Review of Systems - Musculoskeletal Musculoskeletal: reports: Joint pain - All Other Systems All Other Systems: reports: Reviewed and negative Exam - Vital Signs Reviewed Vital Signs: Yes Vital Signs: Vital Signs x48h Temp Pulse Pulse Pulse Pulse Resp BP 01/20/22 11:50 36.0 C L 69 18 01/20/22 10:05 188 H 123/106 H 01/20/22 10:04 72 188 H 74 140/63 H 01/20/22 08:55 36.5 C 71 18 BP BP BP Pulse Ox Pulse Ox 01/20/22 11:50 120/56 L 92 01/20/22 10:05 129/64 01/20/22 10:04 123/106 H 129/64 93 01/20/22 08:55 108/65 93 - Physical Exam General Appearance: positive: No acute distress, Alert Eyes Bilateral: positive: Normal inspection, EOMI ENT: positive: ENT inspection nml, No signs of dehydration Neck: positive: Nml inspection, No JVD Respiratory: positive: No respiratory distress, Breath sounds nml Cardiovascular: positive: Regular rate & rhythm, No murmur Abdomen: positive: Non-tender, Nml bowel sounds, No distention, Other (Obese with pannus) Skin: positive: Warm, Dry Extremities: positive: No pedal edema, Other (L knee bandaged) Conclusion/Plan - Problem List (1) Osteoarthritis involving multiple joints on both sides of body Conclusion/Plan: Today is patient's postop day #1. She has required increased doses of meds for pain control. PT and OT saw the patient today and she is cooperative and rehabable. Will adjust her oral medications for pain control, as she is on her way out to a SNF. UM and social workers have been informed/ are in contact with her insurance and SNFs. The plan is to go from same-day surgery to Observation status and then be discharged tomorrow morning to SNF at [facility], since [facility] cannot accept anymore new admissions this afternoon. (2) KASSANDRA on CPAP Conclusion/Plan: Her home device has been orderred to use here. (3) HTN (hypertension) Conclusion/Plan: Her home meds have been ordered to use here. Her IV fluids which were ordered when she was n.p.o., will now be decreased to TKO and then stopped. - Lab Results Lab results reviewed: Yes Fish Bones: 01/20/22 04:45
[2022-01-20] MEDS: HYDROmorphone 2 MG TABLET PO PRN (21:29)
[2022-01-21] MEDS: HYDROmorphone 2 MG TABLET PO PRN (04:09)
[2022-01-21] MEDS: traMADol 50 MG TABLET PO PRN (06:47)
[2022-01-21] MEDS: ACETAMINOPHEN 500 MG TABLET PO SCH ×2 (06:47→12:15)
[2022-01-21] MEDS: NS W/20 MEQ KCL 1,000 ML IV SCH ×2 (07:36→08:49)
--- NOTE | 2022-01-21 08:05 | Discharge Plan ---
"Discharge Plan for SNF / [facility]SS[facility] - Discharge Plan And Transition Orders Problem Reviewed?: Yes Disposition: 03 SNF DC/Xfer Condition: Fair Allergies and Adverse Reactions: Allergies Allergy/AdvReac Type Severity Reaction Status Date / Time No Known Drug Allergies Allergy Verified 11/05/17 15:38 Health Concerns: The patient was in the hospital for elective knee surgery. Postoperatively she needed adjustment of pain medications. She started working with PT and OT. [facility] and OT. Plan of Treatment: As above. Care Goals: Improvement in symptoms and stabilization are the goals. Assessment: Patient is agreeable with the plan. - SNF / INTERMEDIATE Transition Orders Admit to (Facility): Swing bed status at [facility] Under the care of (Name): Dr Morgan Discharge Diagnosis: (1) Osteoarthritis involving multiple joints on both sides of body (2) S/P total knee replacement (3) KASSANDRA on CPAP (4) HTN (hypertension) (5) Morbid obesity, BMI 40 Medicare Certification Statement: I certify that [facility] care is medically necessary on a continuing basis for any of the conditions for which she/he is receiving care during hospitalization. Notify PCP of admission and forward orders to primary provider for signature. Other Notification Orders: Call PCP immediately if patient develops dyspnea, chest pain/tightness or edema. House Bowel Program: Yes Additional Bowel Program Orders: If no BM after 2 days, nurse may give M.O.M. 30ml PO PRN and/or ducolax Supp 1 OH and/or SIMONE 250mg P.O., and/or senna 1-2 tabs PO. On day 3 nurse may give repeat above order until residents constipation is resolved. Annual Influenza Vaccine (between Dec 30 and July 29): Yes Two-step PPD per [facility] [id number] or approved exception documents: Yes Medication Orders: PLEASE REFER TO THE DISCHARGE MEDICATION LIST. Insulin Orders?: No - Medications New Prescriptions: HYDROmorphone [Dilaudid] 2 mg PO Q6HR PRN #14 tab PRN Reason: Severe Pain oxyCODONE [Roxicodone] 5 mg PO Q6HR PRN #14 tab PRN Reason: Pain traMADol [Ultram] 50 mg PO Q6HR PRN #14 tab PRN Reason: Severe Pain Celecoxib [CeleBREX] 200 mg PO BID PRN #14 cap PRN Reason: As Needed Per Provider Orders Docusate Sodium 100Mg Capsule [Colace 100Mg Capsule] 100 mg PO BID PRN #60 cap PRN Reason: Constipation Aspirin EC [Ecotrin] 81 mg PO BID #84 tablet - Diet Type: No added salt Texture: Regular Liquids: Thin May have monthly special meal: Yes - Therapies | Activity Therapy: Evaluation | Treat if indicated: PT, OT Rehabilitation Potential: Maximize functional status Activity: Activity as Tolerated Weight Bearing: Full Weight Assistance Devices: Walker"
[2022-01-21] MEDS: CELECOXIB 100 MG CAPSULE PO SCH (08:34)
[2022-01-21] MEDS: ethyl alcohoL 62% SWAB AMPULE NAS SCH (08:34)
[2022-01-21] MEDS: ASPIRIN EC 81 MG TABLET PO SCH (08:34)
[2022-01-21] MEDS: SODIUM CHLORIDE FLUSH 0.9% 10 ML SYRINGE IVP SCH (08:35)
[2022-01-21] MEDS: SOLIFENACIN SUCCINATE 5 MG TABLET PO SCH (08:35)
[2022-01-21] MEDS: lisinopriL 20 MG TABLET PO SCH (08:35)
[2022-01-21] MEDS: oxyCODONE 5 MG TABLET PO PRN (08:36)
[2022-01-21] MEDS ORDERED: polyethylene glycoL 3350 17 GM PACKET PO SCH (09:00)
--- NOTE | 2022-01-21 09:30 | PROVIDER PROGRESS NOTE ---
Subjective - General Admit Date: 01/20/22 Procedure Date: 01/19/22 Post Op Days: 2 Procedure Performed: Left TKA - Review of Systems Wound/Incisions: positive: Dressing dry and intact General: negative: Fever, Chills Pulmonary: negative: Shortness of breath Cardiovascular: negative: Chest pain Gastrointestinal: positive: Nausea Musculoskeletal: positive: Joint pain Psychiatric: positive: No symptoms (Patient is a 81-year-old female who is postop day 1 total knee arthroplasty by Dr Abel Rivera at [facility] on 01/19/2022. Patient denies any signs or symptoms of infection, she does endorse significant joint pain and some mild nausea.) All Other Systems: positive: Reviewed and negative - Other Other Information/Narrative: She reports pain to her left knee and difficulty mobilizing and doing physical therapy. This is in spite of attending joint camp and having it emphasized to her the importance of her cooperation and participation in physical therapy/Occupational Therapy to ensure the best outcome. In addition, she now has a placement problem for discharge. This is in spite of the fact that we have spent considerable time and effort prior to surgery to facilitate appropriate placement after proposed outpatient surgery. Objective - Patient Data Vital Signs: Vital Signs x48h Temp Pulse Resp BP Pulse Ox 01/21/22 08:00 36.3 C L 65 18 116/85 H 96 01/21/22 03:57 36.8 C 67 18 106/86 H 95 Weight: Weight 01/19/22 01/20/22 01/21/22 23:59 23:59 23:59 Weight (kg) 102.51 kg Intake & Output: Intake and Output Totals x24h 01/19/22 01/20/22 01/21/22 23:59 23:59 23:59 Intake Total 1541.25 2456.25 100 Output Total 570 100 Balance 971.25 2456.25 0 - Lab Results Lab Results: 01/20/22 04:45 - Current Medications Current Medications: Current Medications Generic Name Dose Route Start Last Admin Trade Name Freq PRN Reason Stop Dose Admin Acetaminophen 1,000 mg 01/19/22 18:00 01/21/22 06:47 Acetaminophen 500 Mg Tablet PO 1,000 mg Q6HR AMRITA Administration Alcohol 1 amp 01/19/22 21:00 01/21/22 08:34 Ethyl Alcohol 62% Swab Ampule EMILE 1 amp BID AMRITA Administration Aspirin 81 mg 01/19/22 21:00 01/21/22 08:34 Aspirin Ec 81 Mg Tablet PO 81 mg BID AMRITA Administration Celecoxib 200 mg 01/19/22 21:00 01/21/22 08:34 Celecoxib 100 Mg Capsule PO 200 mg BID AMRITA Administration Docusate Sodium 100 mg 01/19/22 15:26 01/20/22 09:12 Docusate Sodium 100 Mg Capsule PO 100 mg BID PRN Administration Constipation Hydromorphone HCl 2 mg 01/20/22 14:13 01/21/22 04:09 Hydromorphone 2 Mg Tablet PO 2 mg Q6HR PRN Administration Severe Pain Potassium Chloride/Sodium Chloride 1,000 mls @ 30 mls/hr 01/20/22 14:14 01/21/22 08:49 Normal Saline 0.9% W/20 Meq Kcl IV 30 mls/hr .[id number] AMRITA Administration TKO Lisinopril 20 mg 01/20/22 09:00 01/21/22 08:35 Lisinopril 20 Mg Tablet PO 20 mg DAILY AMRITA Administration Oxycodone HCl 5 mg 01/19/22 15:26 01/21/22 08:36 Oxycodone 5 Mg Tablet PO 5 mg Q6HR PRN Administration PAIN Pantoprazole Sodium 40 mg 01/19/22 17:52 01/20/22 05:49 Pantoprazole 40 Mg Tablet PO 40 mg DAILY PRN Administration acid reflux Polyethylene Glycol 17 gm 01/21/22 09:00 01/21/22 08:34 Polyethylene Glycol 3350 17 Gm Packet PO 17 gm DAILY AMRITA Administration Sodium Chloride 10 ml 01/19/22 17:00 01/21/22 08:35 Sodium Chloride Flush 0.9% 10 Ml Syringe IVP Not Given 0100,0900,1700 [facility] Solifenacin 10 mg 01/20/22 09:00 01/21/22 08:35 Solifenacin Succinate 5 Mg Tablet PO 10 mg DAILY AMRITA Administration Tramadol HCl 50 mg 01/19/22 15:26 01/21/22 06:47 Tramadol 50 Mg Tablet PO 50 mg Q6HR PRN Administration PAIN - Physical Exam Comments/Other: She is alert, fully oriented. She has no respiratory distress. The left knee shows mild swelling, mild ecchymosis and very minimal drainage into her Mepilex dressing. Her neurovascular is completely intact to left leg. There is no clinical deformity. Her extensor mechanism is intact and can do a quadriceps setting exercise. She has intact dorsiflexion and plantarflexion to left ankle. Impression/Plan - Problem List Problem List: Status post left total knee replacement, obesity as comorbidity and osteoarthr itis of her opposite right knee She does not seem to be as motivated as I would anticipate and this was discussed with her. She needs to make a better effort to participate in physical and Occupational Therapy despite her admission to pain with left knee. She does not seem to be showing signs of excessive pain despite reports of pain. She does not have any help at home. She needs to be able to ambulate safely prior to discharge. She needs to be on deep venous thrombosis prophylaxis for 6 weeks, aspirin 81 mg twice daily for 6 weeks. She will need a follow-up to our office within 1 week post discharge. Apparently, there is some indication that she might qualify for swing bed. She is certainly not a safe discharge at this time based on her physical therapy progress. With her history of obesity, osteoarthritis to her opposite right knee and recent surgery, she is a fall risk. This has been discussed with our hospitalist, Dr. Uribe
[2022-01-21 12:53] VITALS: BP 110/63
== END 2022-01-21 14:35 ==
LOC: SDS 10:21 → MS2 16:19 → SDS 01-20 15:18 → MS2 01-20 15:19
PROVIDERS: ADMIT Internal Medicine; ATTEND Orthopaedic Surgery
DX: M17.0 Bilateral primary osteoarthritis of knee (principal); M21.162 Varus deformity, not elsewhere classified, left knee; M24.562 Contracture, left knee; R11.0 Nausea; G47.33 Obstructive sleep apnea (adult) (pediatric); G89.18 Other acute postprocedural pain; I10 Essential (primary) hypertension; E66.01 Morbid (severe) obesity due to excess calories; R32 Unspecified urinary incontinence; Z68.41 Body mass index [BMI] 40.0-44.9, adult; Z79.899 Other long term (current) drug therapy
CPT/HCPCS: 27447; 36415; 73560; 80053; 97110; 97162; 97166; 97530; 97535; A9270; C1713; G0378; J0690; J1170; J3370; J7040; J7120

== ENCOUNTER 2022-03-03 16:22 | Outpatient (CLI) | payer MEDICARE, MEDICAID ==
--- NOTE | 2022-03-04 09:14 | XRAY Report ---
PROCEDURE: Knee 4 View LT INDICATIONS: LEFT TOTAL KNEE TECHNIQUE: 3 views of the left knee(s) were acquired. COMPARISON: X-ray left knee, 01/25/2022. FINDINGS: Bones: Postsurgical changes related to total knee arthroplasty. No fractures or dislocations. No cantu spicious bony lesions. There is joint space narrowing in the medial and lateral femorotibial compart ment of the right knee. Chondrocalcinosis of the right knee. Soft tissues: Small joint effusion. Soft tissue swelling. IMPRESSION: 1. Left knee total arthroplasty with expected postsurgical change. 2. Small left knee joint effusion. 3. Noted to severe degenerative changes in the right kidney. Reviewed by: Drew Valdes MD on 03/04/2022 9:13 AM PDT Approved by: Drew Valdes MD on 03/04/2022 9:13 AM PDT Station ID: [id number]
== END 2022-03-03 16:23 | disposition home or self-care (01) ==
LOC: DI.WOS 16:22
PROVIDERS: ATTEND Orthopaedic Surgery
DX: M25.462 Effusion, left knee (principal); Z96.652 Presence of left artificial knee joint

== ENCOUNTER 2022-05-12 08:28 | Outpatient (CLI) | payer MEDICARE, MEDICAID ==
[2022-05-12 12:09] LABS: BASOPHILS # (AUTO) 0.1 10^3/uL (0.0-0.1); BASOPHILS % (AUTO) 1.2 %; EOSINOPHILS # (AUTO) 0.2 10^3/uL (0.0-0.7); EOSINOPHILS % (AUTO) 3.7 %; HCT - HEMATOCRIT 36.8 % (37.0-47.0); HGB - HEMOGLOBIN 11.4 g/dL (12.0-16.0); LYMPHOCYTES # (AUTO) 1.7 10^3/uL (1.5-3.5); LYMPHOCYTES % (AUTO) 42.1 %; MEAN CORPUSCULAR HEMOGLOBIN 27.6 pg (27.0-31.0); MEAN CORPUSCULAR VOLUME 89.1 fL (81.0-99.0); MEAN PLATELET VOLUME 9.1 fL (7.9-10.8); MONOCYTES # (AUTO) 0.4 10^3/uL (0.0-1.0); MONOCYTES % (AUTO) 10.2 %; NEUTROPHILS # (AUTO) 1.7 10^3/uL (1.5-6.6); NEUTROPHILS % (AUTO) 42.8 %; PLT - PLATELET COUNT 246 10^3/uL (130-450); RED BLOOD COUNT 4.13 10^6/uL (4.20-5.40); RED CELL DISTRIBUTION WIDTH 14.4 % (12.0-15.0)
[2022-05-12 12:26] LABS: ALBUMIN 3.6 g/dL (3.2-5.5); ALBUMIN/GLOBULIN RATIO 1.2 (1.0-2.2); BILIRUBIN,TOTAL 0.5 mg/dL (0.2-1.0); CALCIUM 9.4 mg/dL (8.5-10.3); CREATININE 0.8 mg/dL (0.4-1.0); POTASSIUM 4.1 mmol/L (3.5-5.0); TOTAL PROTEIN 6.6 g/dL (6.7-8.2)
[2022-05-12 13:07] LABS: ESTIMATED AVERAGE GLUCOSE 114 mg/dL (70-100); HEMOGLOBIN A1c% 5.6 % (4.27-6.07)
== END 2022-05-12 08:29 | disposition home or self-care (01) ==
LOC: LAB.N 08:28
PROVIDERS: ATTEND Registered Nurse
DX: Z01.812 Encounter for preprocedural laboratory examination (principal)
CPT/HCPCS: 36415; 80053; 83036; 85025

== ENCOUNTER 2022-06-01 06:32 | Day surgery (SDC) | payer MEDICARE, MEDICAID ==
[2022-06-01] MEDS ORDERED: CELECOXIB 100 MG CAPSULE PO ONE (06:39)
[2022-06-01] MEDS ORDERED: ACETAMINOPHEN 500 MG TABLET PO ONE (06:39)
[2022-06-01] MEDS ORDERED: CEFAZOLIN 2G/50ML 0.9% NS 2 GM/50 ML BAG IV ONE (06:39)
[2022-06-01] MEDS ORDERED: KETOROLAC 30 MG/ML VIAL ONE (06:47)
[2022-06-01] MEDS ORDERED: VANCOMYCIN 1 GM VIAL ONE (06:47)
[2022-06-01] MEDS ORDERED: BUPIVACAINE 0.25% PF 30 ML VIAL ONE (06:47)
[2022-06-01] MEDS ORDERED: fentaNYL 100 MCG/2 ML VIAL ONE (06:52)
[2022-06-01] MEDS ORDERED: MIDAZOLAM 2 MG/2 ML VIAL ONE (06:52)
[2022-06-01] MEDS ORDERED: BUPIVACAINE 0.5% PF 10 ML VIAL ONE (06:52)
[2022-06-01] MEDS ORDERED: PROPOFOL 500 MG/50 ML 500 MG/50 ML VIAL ONE ×2 (06:55→08:52)
[2022-06-01] MEDS ORDERED: PROPOFOL 200 MG/20 ML VIAL IVP ONE ×2 (06:56→09:50)
[2022-06-01] MEDS ORDERED: LACTATED RINGERS 1,000 ML IV ONE (06:59)
[2022-06-01] MEDS ORDERED: PHENYLEPHRINE 10 MG/ML VIAL ONE (06:59)
[2022-06-01] MEDS ORDERED: HYDROmorphone 0.5 MG/0.5 ML SYRINGE IVP PRN (07:03)
[2022-06-01] MEDS ORDERED: fentaNYL 100 MCG/2 ML VIAL IVP PRN (07:03)
[2022-06-01] MEDS ORDERED: ONDANSETRON 4 MG/2 ML VIAL IVP PRN ×2 (07:03→11:22)
[2022-06-01] MEDS ORDERED: ePHEDrine 50 MG/ML VIAL IVP PRN (07:03)
[2022-06-01] MEDS ORDERED: MORPHINE 2 MG/ML CARPUJECT IVP PRN (07:03)
[2022-06-01] MEDS ORDERED: METOCLOPRAMIDE 10 MG/2 ML VIAL IVP PRN (07:03)
[2022-06-01] MEDS ORDERED: NALOXONE 0.4 MG/ML VIAL IVP PRN (07:03)
[2022-06-01] MEDS ORDERED: ATROPINE ABBOJECT 1 MG/10 ML SYRINGE IVP PRN (07:03)
--- NOTE | 2022-06-01 07:03 | ANESTHESIA ---
Pre-Anesthesia VS, & Labs - Diagnosis R knee OA - Procedure R TKA Height: 5 ft 3 in - NPO >8 hours - Is Patient ?: No - Lab Results Lab results reviewed: Yes Home Medications and Allergies Ramipril 5 mg PO DAILY 11/05/17 hydroCHLOROthiazide [Hydrochlorothiazide] 12.5 mg PO DAILY 11/05/17 Lansoprazole [Prevacid] 15 mg PO DAILY PRN 01/04/22 Mirabegron [Myrbetriq] 50 mg PO DAILY 01/04/22 Allergies/Adverse Reactions: Allergies Allergy/AdvReac Type Severity Reaction Status Date / Time No Known Drug Allergies Allergy Verified 06/01/22 06:33 Anes History & Medical History - Anesthetic History Anesthesia Complications: reports: No previous complications Family history of Anesthesia Complications: Denies Family history of Malignant Hyperthermia: Denies - Medical History Cardiovascular: reports: Hypertension Pulmonary: reports: Sleep apnea, CPAP use Gastrointestinal: reports: Other Urinary: reports: Incontinence, Other Musculoskeletal: reports: Osteoarthritis Endocrine/Autoimmune: reports: None Skin: reports: None Smoking Status: Former smoker - Surgical History General: reports: Other Eyes Ears Nose Throat (EENT): reports: Cataracts Urologic: reports: Nephrectomy Orthopedic: reports: Knee replacement Exam General: Alert, Oriented x3, Cooperative Dental: Dentures full Lower Mouth Openin Fingerbreadth Neck Mobility: Normal Mallampati classification: II Thyromental Distance: 4-6 cm Respiratory: Lungs clear, Normal breath sounds, No respiratory distress Cardiovascular: Regular rate Neurological: Normal speech Mental/Cognitive Status: Alert/Oriented X3, Normal for patient Cognitive Status: Within normal limits Plan Anesthesia Type: Spinal Consent for Procedure(s) Verified and Reviewed: Yes Code Status: Attempt Resuscitation ASA classification: 3-Severe systemic disease Is this case an emergency?: No
[2022-06-01] MEDS ORDERED: LACTATED RINGERS 1,000 ML IV SCH (08:00)
[2022-06-01] MEDS ORDERED: DEXAMETHASONE 10 MG/ML VIAL ONE (08:11)
[2022-06-01] MEDS ORDERED: TRANEXAMIC ACID 1,000 MG/10 ML VIAL ONE (08:11)
[2022-06-01] MEDS ORDERED: SODIUM CHLORIDE 0.9% 10 ML VIAL IVP ONE (08:12)
[2022-06-01] MEDS ORDERED: LIDOCAINE-PF 2% 10 ML AMP SUBQ ONE (08:21)
[2022-06-01] MEDS ORDERED: HYDROGEN PEROXIDE 3% 473 ML BOTTLE TOP ONE (08:29)
[2022-06-01] MEDS ORDERED: KETOROLAC 30 MG/ML VIAL IVP ONE (08:29)
[2022-06-01] MEDS ORDERED: VANCOMYCIN 1 GM VIAL MC ONE (08:29)
[2022-06-01] MEDS ORDERED: BUPIVACAINE 0.25% PF 30 ML VIAL SUBQ ONE ×2 (08:30)
--- NOTE | 2022-06-01 10:31 | OPERATIVE REPORT ---
Operative Report - General Procedure Date: 06/01/22 Planned Procedure: Right total knee replacement Pre-Op Diagnosis: Osteoarthritis right knee Procedure Performed: Right total knee replacement: [employer] journey 2 posterior stabilized knee with antibiotic cement, #5 Oxinium posterior stabilized femoral component, #4 primary tibial baseplate, 23mm biconvex patella component, 9 mm posterior stabilized tibial bearing Post Op Diagnosis: Same as preop diagnosis - Procedure Note Primary Surgeon: Abel Rivera MD Secondary Surgeon: Shilpa WALTERS, Michael Madison PAC Anesthesia Technique: General LMA, Spinal Estimated Blood Loss (mL): 150 Indications: This is a 82-year-old woman with morbid obesity, bilateral symptomatic knee osteoarthritis unresponsive to nonoperative treatment over the past several years. She had a left total knee arthroplasty last fall. At [facility] and has had a very favorable outcome. She is only limited by her right knee now. She desires to be able to walk pain-free. Her exam shows increased BMI, decreased motion, crepitus, good stability and strength to right knee as well as joint line tenderness. Her preoperative x-rays show complete loss of medial joint space, osteophytes and advanced changes to the patellofemoral joint. There is varus angulation and relative sparing of the lateral compartment. She has been evaluated preoperatively, attended joint camp and has signed an informed consent prior to surgery at her office agreeing to the procedure and its associated risk. Findings: There was eburnated bone surfaces to the medial compartment with osteophytes. There is marked eburnation of the patellofemoral joint with osteophytes. There was grooving of the patellar bone. The lateral compartment had intact articular surface. The menisci were degenerative as well as the cruciate ligaments. Complications: None - Other Other Information/Narrative: The patient was brought to the operating room and was placed in a supine position. She was given a adductor canal block by anesthesia. A pneumatic tourniquet was Not used because of a large conical thigh. An adjustable leg mabry was placed on the operating room table to facilitate knee flexion of the left knee during surgery. A timeout procedure was performed by the entire operating room team and all were in agreement. A midline longitudinal incision was made with the knee in flexion. The quadriceps was incised proximally approximately 3 cm.A medial parapatellar arthrotomy was made. The anterior horn of medial and lateral menisci were released and part of patellar fat pad was excised. The knee was flexed and the patella was dislocated laterally. A drill hole was made in the intramedullary notch with a 9.5 mm drill. Osteophytes about the proximal tibia and femur had been removed with a rongeur. The distal femoral cutting guide was aligned parallel to the posterior condyles. The intramedullary jeremy and guide was advanced and the distal femoral guide was stabilized with half pins. The distal 5 degrees valgus cut was made through the distal femoral guide. Next the extra medullary tibial guide was assembled and applied and aligned to the mechanical axis in both sagittal and coronal planes. Tibial referencing was done to allow 2 mm of bone from the most affected side and 9 mm from the least affected side. The tibial guide was stabilized with half pins. Retractors were placed medially and laterally to protect the collateral ligaments and a retractor was placed directly against the posterior bone to sublux the tibia anteriorly. A Jobr precision 8 saw was used to make the tibial proximal cut. The tibial block was removed as a single piece and the menisci were removed as well. The extension gap was assessed with a extension block spacer using a 10 mm spacer and this was found to fit well as well as the 9 mm spacer block with the knee in 90 degrees of flexion. Next the femoral positioning guide was applied and aligned to the epicondylar axis and Avin line. This was secured in place with approximately 4 degrees of external rotation. The size of the femur at the anterior lateral trochlea was a #5. Dr ill holes were made in the 5 and 1 #4 cutting block was inserted and secured. The 5 cuts were made to the captured block using oscillating saw. The flexion gap was assessed with the 10 mm spacer and was found to fit well. The patella was then prepared. A 23 mm biconvex patellar reamer was used. The tibial trial #4 was then applied to the tibia and aligned to the mechanical axis. The drill and punch fin was utilized. Trial reduction was performed with the femoral and tibial components in place. Reamer Notch resection was then through the trial component. Pulsatile lavage was performed. A tourniquet was applied during the cementing process. The components were inserted sequentially: Tibia, femur and lastly patellar component. Excess cement was removed and the knee was placed in extension during the hardening. Dilute Betadine irrigation was performed. The knee had full range of motion, good patellar tracking. There was good stability of the knee in full extension mid flexion and 90 degrees of flexion. There was good alignment of the right knee. Hemostasis was achieved with electrocautery. Sterile dilute Betadine irrigation for 3 minutes was utilized. Vancomycin powder 2 g were inserted in the arthrotomy prior to deep closure. The deep closure was performed with #2 Ethibond proximal and distal to the patella with the knee in 40 degrees of flexion. #1 stratofix suture was then used to close the arthrotomy incision. 2-0 Stratofix was used to close the subcutaneous tissue. 3-0 Monocryl was used to do a subcuticular skin closure. Dermabond was applied to the skin incision. After the Dermabond had hardened, a silver impregnated dressing was applied. She tolerated the procedure well and received 2 g of Ancef intravenously and 2 g of tranxamic acid. A neurosurgical nurse was utilized during the procedure and was found to be necessary component to help with exposure, protection of vital structures and closure.
[2022-06-01] MEDS ORDERED: LACTATED RINGERS 950 ML IV ONE (11:04)
[2022-06-01] MEDS ORDERED: oxyCODONE 5 MG TABLET PO PRN ×2 (11:22)
[2022-06-01] MEDS ORDERED: SODIUM CHLORIDE FLUSH 0.9% 10 ML SYRINGE IVP PRN (11:22)
[2022-06-01] MEDS ORDERED: SODIUM CHLORIDE 0.9% 1,000 ML IV ONE ×2 (11:22)
--- NOTE | 2022-06-01 12:30 | ANESTHESIA POST OP EVALUATION ---
Anesthesia Post Eval - Post Anesthesia Eval Vitals: Last Vital Signs Temp 36.0 C L 06/01/22 12:00 Pulse 70 06/01/22 12:00 Resp 16 06/01/22 12:00 BP 112/64 06/01/22 12:00 Pulse Ox 94 06/01/22 12:00 O2 Flow Rate 0 06/01/22 06:59 CV Function Including HR & BP: Stable Pain Control: Satisfactory Nausea & Vomiting: Negative Mental Status: Baseline Respiratory Status: Airway Patent Hydration Status: Satisfactory Anesthesia Complications: None
[2022-06-01] MEDS: HYDROmorphone 2 MG/ML VIAL IVP PRN ×2 (13:11→19:35)
--- NOTE | 2022-06-01 13:29 | XRAY Report ---
PROCEDURE: Knee 2 View RT INDICATIONS: Post operative imaging TECHNIQUE: 2 views of the right knee(s) were acquired. COMPARISON: X-ray 03/02/2022 FINDINGS: Bones: Right knee arthroplasty is present. Hardware is intact without evidence of hardware fracture. There is good anatomic alignment. Soft tissues: Postoperative soft tissue changes are present. IMPRESSION: Status post knee arthroplasty. Reviewed by: Juana Carrillo MD on 06/01/2022 1:28 PM PST Approved by: Juana Carrillo MD on 06/01/2022 1:28 PM PST Station ID: [id number]
[2022-06-01] MEDS ORDERED: CEFAZOLIN 2G/50ML 0.9% NS 2 GM/50 ML BAG IV SCH (14:00)
[2022-06-01] MEDS: NS W/20 MEQ KCL 1,000 ML IV SCH ×2 (14:23→22:58)
[2022-06-01] MEDS: ACETAMINOPHEN 500 MG TABLET PO SCH ×2 (14:23→17:30)
[2022-06-01] MEDS: traMADol 50 MG TABLET PO PRN (15:54)
[2022-06-01] MEDS: CEFAZOLIN 2G/50ML 0.9% NS 2 GM/50 ML BAG IV SCH ×2 (16:40→21:07)
[2022-06-01] MEDS: SODIUM CHLORIDE FLUSH 0.9% 10 ML SYRINGE IVP SCH (17:00)
[2022-06-01] MEDS: ethyl alcohoL 62% SWAB AMPULE NAS SCH (21:06)
[2022-06-01] MEDS: ASPIRIN EC 81 MG TABLET PO SCH (21:06)
[2022-06-01] MEDS: CELECOXIB 100 MG CAPSULE PO SCH (21:06)
[2022-06-02] MEDS: ACETAMINOPHEN 500 MG TABLET PO SCH ×3 (00:29→13:22)
[2022-06-02] MEDS: SODIUM CHLORIDE FLUSH 0.9% 10 ML SYRINGE IVP SCH ×2 (00:30→09:05)
[2022-06-02] MEDS: HYDROmorphone 2 MG/ML VIAL IVP PRN (02:13)
[2022-06-02] MEDS: DOCUSATE SODIUM 100 MG CAPSULE PO PRN ×2 (02:29→09:05)
[2022-06-02 05:02] LABS: EOSINOPHILS % (AUTO) 0.2 %; HCT - HEMATOCRIT 30.8 % (37.0-47.0); HGB - HEMOGLOBIN 9.4 g/dL (12.0-16.0); LYMPHOCYTES # (AUTO) 0.8 10^3/uL (1.5-3.5); LYMPHOCYTES % (AUTO) 13.2 %; MEAN CORPUSCULAR HGB CONC 30.5 g/dL (32.0-36.0); MEAN CORPUSCULAR VOLUME 91.7 fL (81.0-99.0); MEAN PLATELET VOLUME 8.4 fL (7.9-10.8); MONOCYTES # (AUTO) 0.6 10^3/uL (0.0-1.0); MONOCYTES % (AUTO) 10.2 %; NEUTROPHILS # (AUTO) 4.7 10^3/uL (1.5-6.6); NEUTROPHILS % (AUTO) 76.1 %; PLT - PLATELET COUNT 199 10^3/uL (130-450); RED BLOOD COUNT 3.36 10^6/uL (4.20-5.40); WHITE BLOOD COUNT 6.2 x10^3/uL (4.8-10.8)
[2022-06-02] MEDS: traMADol 50 MG TABLET PO PRN ×2 (05:13→11:08)
[2022-06-02] MEDS: NS W/20 MEQ KCL 1,000 ML IV SCH (08:58)
[2022-06-02] MEDS: ethyl alcohoL 62% SWAB AMPULE NAS SCH (09:05)
[2022-06-02] MEDS: ASPIRIN EC 81 MG TABLET PO SCH (09:05)
[2022-06-02] MEDS: CELECOXIB 100 MG CAPSULE PO SCH (09:05)
[2022-06-02 15:10] VITALS: BP 144/86
--- NOTE | 2022-06-02 16:03 | PROVIDER PROGRESS NOTE ---
Subjective - General Procedure Date: 06/01/22 Post Op Days: 1 Procedure Performed: Right total knee arthroplasty - Other Other Information/Narrative: She is alert and her, in bed, her pain is controlled She has no chest pain or difficulty breathing or nausea or vomiting She worked with occupational and physical therapy earlier today She is curious how she can place weight on the right knee after surgery. She states her daughter is on her way to the hospital to assist with Objective - Patient Data Reviewed Vital Signs: Yes Vital Signs: Vital Signs x48h Temp Pulse Pulse Resp BP BP Pulse Ox 06/02/22 11:08 94 144/86 H 06/02/22 08:33 36.5 C 73 18 129/66 98 Weight: Weight 05/31/22 06/01/22 06/02/22 23:59 23:59 23:59 Weight (kg) 102.7 kg Intake & Output: Intake and Output Totals x24h 05/31/22 06/01/22 06/02/22 23:59 23:59 23:59 Intake Total 2458.333 1260 Output Total 150 1200 Balance 2308.333 60 - Lab Results Lab Results: 06/02/22 04:52 Other Lab Results: Lab Results x24hrs 06/02/22 Range/Units 04:52 WBC 6.2 (4.8-10.8) x10^3/uL RBC 3.36 L (4.20-5.40) 10^6/uL Hgb 9.4 L (12.0-16.0) g/dL Hct 30.8 L (37.0-47.0) % MCV 91.7 (81.0-99.0) fL MCH 28.0 (27.0-31.0) pg MCHC 30.5 L (32.0-36.0) g/dL RDW 15.0 (12.0-15.0) % Plt Count 199 (130-450) 10^3/uL MPV 8.4 (7.9-10.8) fL Neut # (Auto) 4.7 (1.5-6.6) 10^3/uL Lymph # (Auto) 0.8 L (1.5-3.5) 10^3/uL [place] # (Auto) 0.6 (0.0-1.0) 10^3/uL Eos # (Auto) 0.0 (0.0-0.7) 10^3/uL Baso # (Auto) 0.0 (0.0-0.1) 10^3/uL Absolute Nucleated RBC 0.00 x10^3/uL Nucleated RBC % 0.0 /100WBC - Imaging Results Radiology Imaging: positive: Final report received - Physical Exam Wound/Incisions: positive: Healing well, Dressing dry and intact, No drainage General Appearance: positive: No acute distress, Alert Neurologic/Psychiatric: positive: Oriented x3 Comments/Other: Alert and oriented lying in bed She is neurovascularly intact to the right lower extremity including the femoral and sciatic nerves Motor and sensation intact to the right lower extremity Dressing is dry and intact with no drainage Small hematoma medial to the Mepilex dressing just proximal to the joint line Knee extension to 0 degrees Knee flexion limited to about 15 degrees due to pain ABX Reporting Has patient been on IV antibiotics over the past 48 hours?: Yes Impression/Plan - Problem List Problem List: 82-year-old female who is postoperative day 1 from a right total knee arthropla sty by Dr. Rivera at [facility]. She is recovering well with appropriate pain control and tolerating a oral diet without nausea or vomiting. Her IV fluids have been discontinued. Her IV has been removed and she is taking oral pain medications only. She worked well with physical therapy and was reportedly a minimal assist with standing and pivoting. According to the occupational therapist she did well in her session today. Her pain is well controlled and per rehabilitation she is safe for discharge. I saw this patient with Dr. Rivera who is in agreement the patient is safe for discharge home today. Plan: Discharge home today with her daughter [facility] has been ordered and is scheduled for next week with [facility] She is weightbearing as tolerated with front wheeled walker Outpatient home medications described in outpatient joint camp booklet which include Tylenol, ibuprofen, oxycodone and tramadol Aspirin twice daily for 6 weeks for blood clot prevention Mepilex dressing to stay in place until follow-up in orthopedic clinic, okay to shower with Mepilex dressing Follow-up in the orthopedic clinic on Monday, your appointment is already made Refer to outpatient discharge instructions provided after surgery
== END 2022-06-02 15:08 | disposition home or self-care (01) ==
LOC: SDS 06:32 → MS2 11:50 → SDS 06-02 15:08
PROVIDERS: ATTEND Orthopaedic Surgery
DX: M17.11 Unilateral primary osteoarthritis, right knee (principal); G47.30 Sleep apnea, unspecified; I10 Essential (primary) hypertension; E11.9 Type 2 diabetes mellitus without complications; E66.9 Obesity, unspecified; Z68.39 Body mass index [BMI] 39.0-39.9, adult; D64.9 Anemia, unspecified
CPT/HCPCS: 27447; 36415; 73560; 85025; 97162; 97166; A9270; C1713; J0690; J1170; J3370; J7120

== ENCOUNTER 2022-06-28 12:46 | Outpatient (CLI) | payer MEDICARE, MEDICAID | END 2022-06-28 12:47 | disposition home or self-care (01) | LOC: LAB.R 12:46 | PROVIDERS: ATTEND Orthopaedic Surgery | DX: S81.001A Unspecified open wound, right knee, initial encounter (principal); Z96.653 Presence of artificial knee joint, bilateral | CPT/HCPCS: 87070; 87077; 87181; 87205 ==

== ENCOUNTER 2022-07-12 15:18 | Outpatient (CLI) | payer MEDICARE, MEDICAID ==
--- NOTE | 2022-07-12 17:58 | XRAY Report ---
PROCEDURE: Knee 4 View RT INDICATIONS: RIGHT TKA TECHNIQUE: 4 views of the right knee(s) were acquired. COMPARISON: None. FINDINGS: Bones: Expected appearance of total right knee arthroplasty. No evidence of hardware failure or loos ening. No fractures or dislocations. No suspicious bony lesions. Soft tissues: No joint effusion. No suspicious soft tissue calcifications. IMPRESSION: Expected appearance of total right knee arthroplasty. Reviewed by: Cooper Sawant MD on 07/12/2022 5:56 PM PDT Approved by: Cooper Sawant MD on 07/12/2022 5:56 PM PDT Station ID: [id number]
== END 2022-07-12 15:20 | disposition home or self-care (01) ==
LOC: DI.WOS 15:18
PROVIDERS: ATTEND Orthopaedic Surgery
DX: Z47.1 Aftercare following joint replacement surgery (principal); Z96.651 Presence of right artificial knee joint

== ENCOUNTER 2023-07-17 08:00 | Outpatient (CLI) | payer MEDICARE, MEDICAID ==
--- NOTE | 2023-07-17 13:42 | XRAY Report ---
PROCEDURE: Knee 4 View RT INDICATIONS: RIGHT TOTAL KNEE TECHNIQUE: 4 views of the knee(s) were acquired. COMPARISON: None. FINDINGS: Bones: No fractures or dislocations. No suspicious bony lesions. Well-aligned arthroplasty without hardware complication. Soft tissues: Small knee joint effusion. No suspicious soft tissue calcifications or masses. IMPRESSION: Well-aligned arthroplasty without hardware complication. Reviewed by: Mehdi Jack MD on 07/17/2023 1:41 PM PDT Approved by: Mehdi Jack MD on 07/17/2023 1:41 PM PDT Station ID: [id number]
== END 2023-07-17 23:59 | disposition home or self-care (01) ==
LOC: DI.WOS 08:00
PROVIDERS: ATTEND Orthopaedic Surgery
DX: M25.461 Effusion, right knee (principal); Z96.653 Presence of artificial knee joint, bilateral